=== PATIENT | male | born 1960 | race Hispanic/Latino ===

== ENCOUNTER 2018-02-28 22:13 | Emergency (ER) | payer BC ==
[2018-03-01 00:07] LABS: BASO % 0.2 % (0.0-2.0); EOS % 0.1 % (0.0-4.0); HEMOGLOBIN 15.3 g/dL (12.0-18.0); LYMPH # 1.8 K/uL (1.0-4.3); LYMPH % 11.1 % (20.0-40.0); MEAN CELL VOLUME 92.1 fl (80.0-94.0); MEAN CORPUSCULAR HEMOGLOBIN 31.5 pg (27.0-31.0); MEAN CORPUSCULAR HGB CONC 34.2 g/dL (33.0-37.0); MEAN PLATELET VOLUME 9.1 fl (7.2-11.7); MONO # 1.4 K/uL (0.0-0.8); NEUT # 12.6 K/uL (1.8-7.0); NEUT % 79.6 % (50.0-75.0); RBC 4.85 Mil/uL (4.40-5.90); RED CELL DISTRIBUTION WIDTH 13.7 % (11.5-14.5); WHITE BLOOD COUNT 15.8 K/uL (4.8-10.8)
[2018-03-01 00:20] LABS: ALB/GLOB RATIO 1.2 (1.0-2.1); ALBUMIN 4.3 g/dL (3.5-5.0); ALT/SGPT 42 U/L (21-72); AST/SGOT 37 U/L (17-59); BLOOD UREA NITROGEN 24 mg/dl (9-20); CALCIUM 9.2 mg/dL (8.4-10.2); GFR AFRICAN-AMERICAN > 60; GFR NON-AFRICAN AMERICAN > 60
[2018-03-01] MEDS ORDERED: diaZEpam 10 mg/2 ml Inj IVP ONE (00:47)
[2018-03-01] MEDS ORDERED: levETIRAcetam 1,000 MG in Sodium Chloride 0.9% 100 ML IVPB ONE (00:49)
--- NOTE | 2018-03-01 00:51 | CT ---
EXAM: CT Head Without Intravenous Contrast CLINICAL HISTORY: 57 years old, male; Condition or disease; Convulsions or seizures; Prior surgery; Surgery date: 6+ months; Additional info: Seizure TECHNIQUE: Axial computed tomography images of the head/brain without intravenous contrast. All CT scans at this facility use one or more dose reduction techniques, viz.: automated exposure control; ma/kV adjustment per patient size (including targeted exams where dose is matched to indication; i.e. head); or iterative reconstruction technique. Coronal and sagittal reformatted images were created and reviewed. COMPARISON: No relevant prior studies available. Comparison is made to a prior report dated 04/21/2016. FINDINGS: Brain: There is a hypodense mass in the right inferior frontal lobe measuring 2.6 x 2.0 x 2.5 cm, new finding compared to the prior report. No significant surrounding edema. Left frontal craniotomy and postsurgical changes suggesting tumor resection in the left frontal lobe. Left frontal lobe decreased attenuation secondary to edema and encephalomalacia. Scattered foci of increased density in the left frontal lobe could be secondary to calcification or blood. Density along the left frontal convexity adjacent to the craniotomy is probably postsurgical change measuring 4 mm in greatest thickness. Small subdural hematoma is not excluded. Ventricles: There is mass effect upon the left lateral ventricle and midline shift from the left to the right approximately 4 mm. Sinuses: Unremarkable as visualized. No acute sinusitis. Mastoid air cells: Unremarkable as visualized. No mastoid effusion. IMPRESSION: Suspect right frontal lobe hyperdense mass. Further evaluation with MRI of the brain is recommended. Left frontal lobe craniotomy and tumor resection. Left frontal lobe edema and/or encephalomalacia. Scattered foci of increased density in the left frontal lobe probably secondary to calcification. Hemorrhage is not excluded. Density along the left frontal convexity could be related to previous surgery. However, small left subdural hematoma is difficult to completely exclude. Midline shift to the right, 4 mm.
[2018-03-01 01:04] VITALS: PULSE 71
[2018-03-01 01:27] VITALS: BP 172/105; RESP 21; TEMP 98; O2SAT 100
--- NOTE | 2018-03-01 02:54 | ED PDOC ---
HPI: Seizure Time Seen by Provider: 02/28/18 22:52 Chief Complaint (Nursing): Seizure Chief Complaint (Provider): Seizure History Per: Patient, Family () History/Exam Limitations: no limitations Recent Seizure Activity Began: Just Before Arrival Associated Symptoms: denies: Bit Tongue Additional Complaint(s): 57 years old male with history of hypertension and brain cancer-glioblastoma presents to the ED with complaints of seizure that lasted 1 minute associated with loss of consciousness, urinary incontinence and drooling. Patient's reports he was in bed when the full seizure cycle happened and was witnessed by her. He admits being diagnosed with brain cancer in 2016 and is currently receiving all of his care at [facility] in [place]. Per , an MRI was done 6 days ago and showed 25% growth in which they are holding chemo therapy for now as of Saturday considering the new MRI findings. As per the mass is in the L frontal lobe. states that the patient self medicates with Depakote 500 mg BID, Rx by his neurosurgeon Dr. Johnson, and his last seizure was in September 2017 in which he was "shaking" but remained awake. He also received a second surgery in September 2017 to remove more of the tumor. Otherwise patient has : (-) lightheadedness, (-) trauma, (-) headache, (-) chest pain, (-) dyspnea, (-) fever, (-) vomiting, (-) diarrhea. Past Medical History Reviewed: Historical Data Vital Signs: Last Vital Signs Temp 98 F 03/01/18 01:26 Pulse 71 03/01/18 01:26 Resp 21 03/01/18 01:26 BP 172/105 H 03/01/18 01:26 Pulse Ox 100 03/01/18 03:24 - Medical History PMH: Depression, Gastritis, HTN, Hypercholesterolemia, Seizures Denies: HIV, Chronic Kidney Disease Other PMH: Brain cancer-glioblastoma - Surgical History Other surgeries: Brain tumor removal - Family History Family History: States: Unknown Family Hx - Social History Current smoker - smoking cessation education provided: No (Unkown) Alcohol: None Drugs: Denies - Home Medications Home Medications: Ambulatory Orders Medication Instructions Recorded Acyclovir [Zovirax] 400 mg PO BID 04/21/16 Baclofen [Lioresal] 10 mg PO BID 04/21/16 Losartan [Cozaar] 25 mg PO DAILY 04/21/16 Omeprazole 20 mg PO DAILY 04/21/16 Rosuvastatin Calcium [Crestor] 20 mg PO HS 04/21/16 Sertraline [Zoloft] 100 mg PO HS 04/21/16 Cholecalciferol (Vitamin D3) 2,000 unit PO BID 09/17/16 [Vitamin D3] Divalproex [Depakote DR] 500 mg PO BID 09/17/16 Naproxen [Naprosyn] 500 mg PO BID 09/17/16 Oxybutynin [Ditropan Tab] 5 mg PO BID 09/17/16 traMADol [Ultram] 100 mg PO BID 09/17/16 - Allergies Allergies/Adverse Reactions: Allergies Allergy/AdvReac Type Severity Reaction Status Date / Time No Known Allergies Allergy Verified 09/17/16 16:03 Review of Systems ROS Statement: Except As Marked, All Systems Reviewed And Found Negative Neurological: Positive for: Seizures Physical Exam - Physical Exam Comments: GENERALIZED APPEARANCE:Patient is awake, alert, oriented x1 - self only, in no acute distress and follows commands. SKIN: Warm, dry; (-) cyanosis. HEAD: (-) scalp swelling or tenderness. EYES: (-) conjunctival pallor. ENMT: Mucous membranes dry. NECK: (-) tenderness, (-) stiffness, (-) lymphadenopathy. CHEST AND RESPIRATORY: (-) rales, (-) rhonchi, (-) wheezes; breath sounds equal bilaterally. HEART AND CARDIOVASCULAR: (-) irregularity; (-) murmur, (-) gallop. ABDOMEN AND GI: Soft; (-) distention, (-) tenderness, (-) rebound, (-) guarding , (-) palpable masses, (-) flank tenderness. EXTREMITIES: (-) deformity; (-) edema. Distal pulses: present. NEURO AND PSYCH: Mental status as above. ui ux web developer: (-) nystagmus; Pupils EOMI, (-) facial asymmetry; (-) dysarthria; tongue and uvula midline. Strength symmetric. - Laboratory Results Result Diagrams: 03/01/18 00:06 03/01/18 00:06 - ECG O2 Sat by Pulse Oximetry: 100 (RA) Pulse Ox Interpretation: Normal Medical Decision Making Medical Decision Making: Time: 2318 Initial Plan: --CT Head w/o Contrast --CMP --Valproic Acid --EKG --CBC --Chest X-Ray One View --Ativan 2 mg IVP --Keppra 1,000 mg --Valium 2 mg IVP Patient's called the neurosurgeon Dr. Johnson, who requested patient being transferred to [facility] for better continuity of care. Received a call from transfer center. Spoke to Santiago ([phone]), the discharge door operator of transfer center in [facility], who spoke to Yadira, the PA from Dr. Johnson's neurosurgical team. She recommends CT head and 1 gram of Keppra IV and transfer to the inpatient unit of , Dr. Johnson will be the accepting physician. 0045 Patient had a tonic clonic seizure for 30 secs, he regained consciousness immediately, still post-ictal at this time. Given ativan 2 mg IVP stat. IV Keppra 1 g given. [address] Head CT FINDINGS: Brain: There is a hypodense mass in the right inferior frontal lobe measuring 2.6 x 2.0 x 2.5 cm, new finding compared to the prior report. No significant surrounding edema. Left frontal craniotomy and postsurgical changes suggesting tumor resection in the left frontal lobe. Left frontal lobe decreased attenuation secondary to edema and encephalomalacia. Scattered foci of increased density in the left frontal lobe could be secondary to calcification or blood. Density along the left frontal convexity adjacent to the craniotomy is probably postsurgical change measuring 4 mm in greatest thickness. Small subdural hematoma is not excluded. Ventricles: There is mass effect upon the left lateral ventricle and midline shift from the left to the right approximately 4 mm. Sinuses: Unremarkable as visualized. No acute sinusitis. Mastoid air cells: Unremarkable as visualized. No mastoid effusion. IMPRESSION: Suspect right frontal lobe hyperdense mass. Further evaluation with MRI of the brain is recommended. Left frontal lobe craniotomy and tumor resection. Left frontal lobe edema and/or encephalomalacia. Scattered foci of increased density in the left frontal lobe probably secondary to calcification. Hemorrhage is not excluded. Density along the left frontal convexity could be related to previous surgery. However, small left subdural hematoma is difficult to completely exclude. Midline shift to the right, 4 mm. Dictated By: Laurie Samano MD Dictated Date/Time: 03/01/1850 Signed By: Laurie Castle MD Date Signed: 50 Transcribed By: JOHNSON Transcribe Date/Time : 03/01/1850 KIARA/LORI Patient's BP still elevated, ER MD made aware, Dr. Smith, feels comfortable with the patient being transferred to [facility]. Transfer team from [facility] arrived, patient transferred to their care. __ Scribe Attestation: Documented by Marisabel Mcgill, acting as a scribe for Olesya Morfin PA-C. Provider Scribe Attestation: All medical record entries made by the Scribe were at my direction and personally dictated by me. I have reviewed the chart and agree that the record accurately reflects my personal performance of the history, physical exam, medical decision making, and the department course for this patient. I have also personally directed, reviewed, and agree with the discharge instructions and disposition. Disposition - Clinical Impression Clinical Impression: Seizure, Glioblastoma - Patient ED Disposition Is Patient to be Admitted: Transfer of Care (Patient transferred to [facility] as per request of patient's neurosurgeon and .) - Disposition Disposition: Transfer of Care Disposition Time: 01:00 Condition: STABLE Forms: [facility] (Romanian) - PA / TECHNICAL SUPPORT ASSOCIATE / Resident Statement MD/DO has reviewed & agrees with the documentation as recorded.
--- NOTE | 2018-03-03 06:46 | CARD ---
APPROVED REPORT EKG Measurement Heart [id number] CO [id number] <Conclusion> Normal sinus rhythm Incomplete right bundle branch block Borderline ECG
== END 2018-03-01 02:07 | disposition short-term general hospital (02) ==
LOC: H.ER 22:13
DX: R56.9 Unspecified convulsions (principal); C71.9 Malignant neoplasm of brain, unspecified; E78.00 Pure hypercholesterolemia, unspecified; F32.9 Major depressive disorder, single episode, unspecified; I10 Essential (primary) hypertension; Z85.841 Personal history of malignant neoplasm of brain
CPT/HCPCS: 70450; 71045; 80053; 80164; 82948; 85025; 96374; 99285; J1953; J2060